=== PATIENT | female | born 1975 | race Caucasian/White ===

== ENCOUNTER 2023-01-05 20:19 | Emergency (ER) | payer MEDICAID ==
[~2023-01-05] VITALS: Ht 175.3 cm; Wt 63.5 kg
[2023-01-05] MEDS ORDERED: Bactrim Ds Tab1 EACH PO (23:41)
== END 2023-01-05 23:59 | disposition home or self-care (01) ==
LOC: ER 20:19
DX: L02.414 Cutaneous abscess of left upper limb (principal); Z88.0 Allergy status to penicillin
CPT/HCPCS: 10060; 90471; 90714; 99282-25; A9270